=== PATIENT | male | born 1990 | race Caucasian/White ===

== ENCOUNTER 2017-10-24 14:06 | Emergency (ER) | payer OTHER | END 2017-10-24 16:14 | disposition home or self-care (01) | LOC: FTE 14:06 → E/R 16:14 | DX: S39.012A Strain of muscle, fascia and tendon of lower back, initial encounter (principal); E11.9 Type 2 diabetes mellitus without complications; X58.XXXA Exposure to other specified factors, initial encounter; Y92.9 Unspecified place or not applicable | CPT/HCPCS: 99284; Z7502 ==